=== PATIENT | female | born 1995 | race Caucasian/White ===

== ENCOUNTER 2023-11-26 08:33 | Outpatient (CLI) | payer OTHER ==
--- NOTE | 2023-11-26 16:50 | MRI Report ---
PROCEDURE: Shoulder RT WO INDICATIONS: RIGHT SHOULD PAIN TECHNIQUE: Noncontrast oblique coronal T2 fast spin echo with fat saturation, oblique sagittal T1 spin echo and T2 fast spin echo with fat saturation, axial T1 spin echo and T2 fast spin echo with fat saturation t hrough the shoulder. COMPARISON: None. FINDINGS: Image quality: Diagnostic Rotator cuff Bulk: No significant atrophy Teres minor: Intact Supraspinatus: Mild insertional tendinopathy, with adjacent insertional ganglions. Infraspinatus: Mild tendinopathy Subscapularis: Mild tendinopathy. Possible partial thickness articular sided tear. Bones and bursae GH joint: No significant degenerative changes AC joint: Intact Humeral head: Questionable flattening of the posterior humeral head, correlate with any history of di slocation Scapula and acromion: Postsurgical changes at the glenoid Bursa: No pathologic fluid Capsule Labrum: Signal abnormality at the superior labrum, indeterminate for tear versus postsurgical changes . This also extends the anterior labrum Long head biceps tendon: Tenodesis sequelae IGHL: Intact Rotator interval: Fat signal is preserved Soft tissues: No axillary adenopathy. Lungs are not well seen. IMPRESSION: Signal abnormality of the superior and anterior labrum, possibly representing a tear versus postsurgi marisela changes. An MR arthrogram could better evaluate if clinically indicated. There may be flattening of the posterior humeral head, without acute edema. Correlate with any history of prior shoulder instability. Suspected prior biceps tenodesis. No acute fracture or dislocation. Mild tendinopathy of the rotator cuff, without full-thickness defect. Reviewed by: Colin Tirado MD on 11/26/2023 4:48 PM PST Approved by: Colin Tirado MD on 11/26/2023 4:48 PM PST Station ID: [id number]
== END 2023-11-26 08:34 | disposition home or self-care (01) ==
LOC: DI 08:33
PROVIDERS: ATTEND Student in an Organized Health Care Education/Training Program
DX: M75.91 Shoulder lesion, unspecified, right shoulder (principal); M25.511 Pain in right shoulder